=== PATIENT | male | born 1965 | race Caucasian/White ===

== ENCOUNTER 2017-05-07 07:09 | Inpatient (IN) | payer OTHER ==
[~2017-05-07] VITALS: Ht 180.3 cm; Wt 93.8 kg
[2017-05-07] VITALS (15 sets, daily range): BP systolic 101–131; BP diastolic 64–81; PULSE 59–77; RESP 18–20; TEMP 97.9–98.7; O2SAT 97–100
[2017-05-07] MEDS ORDERED: HEPARIN SODIUM - IV 10,000 UNITS/10 ML VIAL IV PUSH STA (07:11)
[2017-05-07] MEDS ORDERED: SODIUM CHLOR 0.9% 1000 ML INJ 1,000 ML IV ONE (07:11)
[2017-05-07] MEDS ORDERED: HEPARIN-NS/PF FLUSH BAG 2,000 ML IV FLUSH ONE (07:13)
[2017-05-07] MEDS ORDERED: SODIUM CHLORIDE 0.9% FLUSH 10 ML FLUSH IVF PRN (07:15)
--- NOTE | 2017-05-07 07:24 | PD ---
HPI Chief Complaint: STEMI Alert Time Seen by Provider: 07:11 Travel History International Travel<30 days: No Contact w/Intl Traveler<30days: No Traveled to known affect area: No History of Present Illness HPI Patient is a 52-year-old male brought in by EMS due to chest pain. He says he woke up around 530 this morning and had pain in his shoulders. It then quickly became pain to the center of his chest. He had some nausea and shortness of breath. Pain radiated down his left arm. He says he tried to drive with his to the hospital, but they got lost, so they called 911. He was given aspirin by EMS prior to arrival. He denies any medical history. He says he has never had pain like this before. Severity is moderate to severe. [facility] Past Medical History Medical History: Denies Significant Hx Past Surgical History Surgical History: No Previous Surgery Social History Tobacco Use: No Allergies-Medications (Allergen,Severity, Reaction): Coded Allergies: No Allergy Information Available (Unverified , 05/07/17) Review of Systems Except as stated in HPI: all other systems reviewed are Neg General / Constitutional: No: Fever, Chills HENT: No: Headaches, Lightheadedness Cardiovascular: Positive: Chest Pain or Discomfort Respiratory: Positive: Shortness of Breath Gastrointestinal: Positive: Nausea Musculoskeletal: No: Edema Skin: No Rash, No Change in Pigmentation Neurologic: No: Weakness, Dizziness Physical Exam Narrative GENERAL: Awake and alert, obviously uncomfortable, clutching his chest. SKIN: Diaphoretic. HEAD: Atraumatic. Normocephalic. EYES: Pupils equal and round. No scleral icterus. ENT: Mucous membranes pink and moist. NECK: Trachea midline. No JVD. CARDIOVASCULAR: Regular rate and rhythm. No murmur appreciated. RESPIRATORY: No accessory muscle use. Clear to auscultation. Breath sounds equal bilaterally. GASTROINTESTINAL: Abdomen soft, non-tender, nondistended. MUSCULOSKELETAL: No obvious deformities. No clubbing. No cyanosis. No edema. NEUROLOGICAL: Awake and alert. No obvious cranial nerve deficits. Motor grossly within normal limits. Normal speech. PSYCHIATRIC: Appropriate mood and affect; insight and judgment normal. Data Data Last Documented VS Vital Signs Date Time Temp Pulse Resp B/P (MAP) Pulse Ox O2 Delivery O2 Flow Rate FiO2 05/07/17 07:15 100 Nasal Cannula 2.00 05/07/17 07:11 98.7 66 18 101/64 (76) Orders Orders Troponin I (05/07/17 07:11) Ckmb (Isoenzyme) Profile (05/07/17 07:11) Complete Blood Count With Diff (05/07/17 07:11) I-Stat Profile (05/07/17 07:11) I-Stat Creatinine (05/07/17 07:11) Calcium (05/07/17 07:11) Magnesium (Mg) (05/07/17 07:11) Prothrombin Time / Inr (Pt) (05/07/17 07:11) Act Partial Throm Time (Ptt) (05/07/17 07:11) B-Type Natriuretic Peptide (05/07/17 07:11) Chest, Single Ap (05/07/17 07:11) Electrocardiogram (05/07/17 07:11) Oxygen Administration (05/07/17 07:11) Iv Access Insert/Monitor (05/07/17 07:11) Oximetry (05/07/17 07:11) Sodium Chlor 0.9% 1000 Ml Inj (Ns 1000 M (05/07/17 07:11) Sodium Chloride 0.9% Flush (Ns Flush) (05/07/17 07:15) Heparin Inj (Heparin Inj) (05/07/17 07:11) Cardiac Catheterization (05/07/17 07:13) Heparin-Ns/Pf Flush Bag (Heparin-Ns/Pf F (05/07/17 07:13) Admit Order (Ed Use Only) (05/07/17 ) CKMB (05/07/17 07:10) CKMB% (05/07/17 07:10) Labs Laboratory Tests Test 05/07/17 07:10 White Blood Count 6.8 TH/MM3 Red Blood Count 4.34 MIL/MM3 Hemoglobin 14.9 GM/DL Bedside Hemoglobin 14.3 G/DL Hematocrit 40.3 % Bedside Hematocrit 42.0 % Mean Corpuscular Volume 92.8 FL Mean Corpuscular Hemoglobin 34.4 PG Mean Corpuscular Hemoglobin Concent 37.1 % Red Cell Distribution Width 13.3 % Platelet Count 266 TH/MM3 Mean Platelet Volume 7.8 FL Neutrophils (%) (Auto) 57.6 % Lymphocytes (%) (Auto) 27.4 % Monocytes (%) (Auto) 10.8 % Eosinophils (%) (Auto) 3.6 % Basophils (%) (Auto) 0.6 % Neutrophils # (Auto) 3.9 TH/MM3 Lymphocytes # (Auto) 1.9 TH/MM3 Monocytes # (Auto) 0.7 TH/MM3 Eosinophils # (Auto) 0.2 TH/MM3 Basophils # (Auto) 0.0 TH/MM3 CBC Comment AUTO DIFF Differential Comment AUTO DIFF CONFIRMED Prothrombin Time 10.0 SEC Prothromb Time International Ratio 1.0 RATIO Activated Partial Thromboplast Time 21.0 SEC Bedside Sodium 141 MMOL/L Bedside Potassium 4.0 MMOL/L Bedside Chloride 104 MMOL/L Bedside Blood Urea Nitrogen 20 MG/DL Bedside Creatinine 1.0 MG/DL Bedside Glucose 143 MG/DL Calcium Level 8.2 MG/DL Magnesium Level 2.2 MG/DL Total Bilirubin 0.3 MG/DL Direct Bilirubin LESS THAN 0.1 MG/DL Indirect Bilirubin 0.2 MG/DL Aspartate Amino Transf (AST/SGOT) 15 U/L Alanine Aminotransferase (ALT/SGPT) 20 U/L Alkaline Phosphatase 90 U/L Total Creatine Kinase 192 U/L Creatine Kinase MB 2.1 NG/ML Troponin I 0.39 NG/ML B-Type Natriuretic Peptide 28 PG/ML Total Protein 7.1 GM/DL Albumin 3.7 GM/DL [facility] Medical Decision Making Medical Screen Exam Complete: Yes Emergency Medical Condition: Yes Interpretation(s) ECG shows ST elevation in leads II, 3, aVF as well as reciprocal changes in lead V2, V3. Differential Diagnosis ACS versus NSTEMI versus STEMI Narrative Course Patient is a 52-year-old male who is brought in by EMS due to chest pain. He is clutching his chest, diaphoretic. Second IV established, patient connected to the health care coach. ECG obtained, shows STEMI. STEMI alert issued. Patient was given Aspirin and Nitro by EMS. Patient was hypotensive on arrival. Started on IVF. Given heparin bolus. I spoke with Dr. Chow of cardiology who will take the patient to the labor mediator. Patient transported to the labor mediator. Diagnosis Primary Impression: STEMI (ST elevation myocardial infarction) Qualified Codes: I21.19 - ST elevation (STEMI) myocardial infarction involving other coronary artery of inferior wall Admitting Information Admitting Physician Requests: Admit Azalea Govea MD May 07, 2017 07:24
[2017-05-07 07:28] LABS: AUTOMATED NEUTROPHIL # 3.9 TH/MM3 (1.8-7.7); BASOPHIL % 0.6 % (0.0-2.0); EOSINOPHIL # 0.2 TH/MM3 (0-0.4); EOSINOPHIL % 3.6 % (0.0-4.0); HEMATOCRIT 40.3 % (39.0-51.0); HEMOGLOBIN 14.9 GM/DL (13.0-17.0); LYMPH % 27.4 % (9.0-44.0); LYMPHOCYTE # 1.9 TH/MM3 (1.0-4.8); MEAN CELL VOLUME 92.8 FL (80.0-100.0); MEAN CORPUSCULAR HEMOGLOBIN 34.4 PG (27.0-34.0); MEAN PLATELET VOLUME 7.8 FL (7.0-11.0); MONO % 10.8 % (0.0-8.0); MONOCYTE # 0.7 TH/MM3 (0-0.9); NEUT % 57.6 % (16.0-70.0); PLATELET COUNT 266 TH/MM3 (150-450); RED BLOOD COUNT 4.34 MIL/MM3 (4.50-5.90); RED CELL DISTRIBUTION WIDTH 13.3 % (11.6-17.2); WHITE BLOOD COUNT 6.8 TH/MM3 (4.0-11.0)
[2017-05-07 07:31] LABS: MEAN CORPUSCULAR HGB CONC 37.1 % (32.0-36.0)
--- NOTE | 2017-05-07 07:37 | RADRPT ---
EXAM DATE/TIME: 05/07/2017 07:11 [place] COMPARISON: No previous studies available for comparison. INDICATIONS : Stroke alert MEDICAL HISTORY : None. SURGICAL HISTORY : None. ENCOUNTER: Initial ACUITY: 1 day PAIN SCORE: 0/10 LOCATION: chest FINDINGS: Portable AP view of the chest demonstrates a normal-sized cardiac silhouette. No effusion, consolidat ion, or pneumothorax is visualized. The bones and soft tissues demonstrate no acute abnormality. EKG lines overlie the patient. CONCLUSION: No acute cardiopulmonary abnormality is identified. Reece Salter MD on May 07, 2017 at 7:34 Board Certified Radiologist. This report was verified electronically.
[2017-05-07 07:50] LABS: CALCIUM 8.2 MG/DL (8.5-10.1); MAGNESIUM 2.2 MG/DL (1.5-2.5)
[2017-05-07 07:52] LABS: TROPONIN I 0.39 NG/ML (0.02-0.05)
[2017-05-07] MEDS ORDERED: MIDAZOLAM HCL 2 MG/2 ML VIAL ONE (07:56)
[2017-05-07] MEDS ORDERED: SODIUM NITROPRUSSIDE 50 MG/2 ML VIAL ONE (08:03)
[2017-05-07] MEDS ORDERED: TIROFIBAN INFUSION INJ 0 ML IV ONE (08:11)
[2017-05-07] MEDS ORDERED: ATROPINE SULFATE 1 MG/10 ML SYRINGE ONE (08:11)
[2017-05-07] MEDS ORDERED: PRASUGREL 10 MG TAB ONE (08:11)
[2017-05-07] MEDS ORDERED: TIROFIBAN INFUSION INJ 250 ML IV ONE (08:13)
--- NOTE | 2017-05-07 08:37 | CATHPROC ---
[employer] HIS Report Study Information Study Number Admission Scheduled Start Study Start [id number] May 07 2017 7:09AM 05/07/2017 May 07 2017 7:14AM [facility] Cardiac Catheterization Admit Source Facility Department Emergency department [facility] - Personal Injury Paralegal Physician and Clinical Staff Initial French Manzanares Bumper Straightener Anne Lew RN Bumper Straightener Michael Sevilla RN Other cathlab, cathlab Recorder Aryan EDGE, Primo RecordCalixto Vazquez RCIS(BS) Scrub Mitzi Davenport,FREIGHT SALES BROKER TECH2 Procedures Performed Procedure Location (Site) Vessel Name Coronary Angiograms LCA Left Coronary LV Gram-hand inj. LV LV Ventricle Stent RCA Mid Right Coronary Wire insertion Fem Art (right) Femoral Art Equipment Time Clinical Sociologist Description Size Mfg Part Number Used/Scraped [id number] 07:56 KRAFT [employer] C[employer] WIRE, ASAHI PROWATER 180CM 180CM Used *[id number] TRANSDUCER, TRUWAVE [id number] 07:20 GRADY GRESHAM * Used W/STOCKCOCK *[id number] [id number] *[id number] -[id number] *[id number] *[id number] [id number] *[id number] 07:20 MEDLINE INDUSTRIES PACK, CCL CUSTOM * Used *[id number] 07:20 [employer] PACER PEN, SKIN DUAL W/ RULER * Used *[id number] 08:03 MEDTRONIC STENT, 3.0 22 INTEGRITY 3.0 22 Used *[id number] 07:57 [employer] MEDICAL 30 AIDEE INDEFLATOR Used *[id number] 07:20 [employer] MEDICAL SHEATH, FR6.5 PRELUDE 11CM FR 6.5 038ACT Used *[id number] 07:20 [employer] MEDICAL WIRE, 3MMJ .035 180CM 180CM Used *[id number] 07:20 NAMIC MANIFOLD, 4 PORT * Used *[id number] 07:20 NYCOMED OMNIPAQUE, 350 MG, 150ML 150ML [id number] Used [id number] 07:20 HAIDER MEDICAL BLANKET,WARM AIR CCL * Used *[id number] 07:20 TERUMO MEDICAL SHEATH, FR4 TERUMO (10CM) FR 4 Used *[id number] Equipment Model, Serial, Lot Number and Expiration Data Description Model Number Serial Number Lot Number Expiration Date STENT, 3.0 22 INTEGRITY [id number] 06-10-2018 History: Allergies Allergy Reaction No Allergy Information Available History: Risk Factors Family History of Hypertension Dyslipidemia Previous OR Previous Heart Failure Premature CAD No No Yes No No Prior Valve Prior PCI Prior CABG Surgery No No No Cerebrovascular Peripheral Artery Chronic Lung On Dialysis Diabetes Disease Disease Disease No No No Yes No History: Symptoms/Diagnosis Selection Items Chest pain History: Stress Tests Stress or Imaging Studies Performed No History: Other Current Smoker No Labs Hgb (g/dl) Hct (%) RBC (MIL/MM3) Platelets (thousands) 11.60-17.00 35.00-51.00 4.00-5.90 150.00-450.00 14.9 30.3 6.8 266 Glucose (mg/dl) BUN (mg/dl) Creatinine (mg/dl) BUN:Creatinine (1:x) 74.00-106.00 7.00-18.00 0.50-1.30 10.00-20.00 143 20 1.0 20 Na (meq/l) K (meq/l) 136.00-145.00 3.50-5.10 141 4 CPK-MB (ng/ML) 0.50-3.60 Not Drawn Medication Medication Total Dose (Bolus/Oral) Medication Total Dosage/Unit 1% XYLOCAINE 20 mL AGGRASTAT BOLUS 47.7 mL ATROPINE 0.5 mg EFFIENT 60 mg FENTANYL 37.5 mcg HEPARIN 5700 units VERSED 1 mg Medications (Bolus/Oral) Medication Time Given Dosage/Unit Administered By Reason 1% XYLOCAINE 05/07/2017 7:56:37 AM 20 mL French Chow 20 mL 1% XYLOCAINE given in lab by French Chow in Right Groin via Subcutaneous. VERSED 05/07/2017 7:57:00 AM 1 mg Hes, Anne 1 mg VERSED given in lab by Anne Lew, KELY in Left Antecubital via Peripheral IV. Ordered by French Shipman. FENTANYL 05/07/2017 7:58:54 AM 12.5 mcg Vipin, Anne 12.5 mcg FENTANYL given in lab by Anne Lew, RN via Peripheral IV. Ordered by French Chow. HEPARIN 05/07/2017 8:03:10 AM 5700 units Anne Lew 5700 units HEPARIN given in lab by Anne Lew RN via Peripheral IV. Ordered by French Chow. ATROPINE 05/07/2017 8:05:07 AM 0.5 mg Anne Lew 0.5 mg ATROPINE given in lab by Anne Lew RN via Peripheral IV. Ordered by French Chow. FENTANYL 05/07/2017 8:10:41 AM 12.5 mcg Anne Lew 12.5 mcg FENTANYL given in lab by Anne Lew RN via Peripheral IV. Ordered by French Chow. EFFIENT 05/07/2017 8:18:29 AM 60 mg Anne Lew 60 mg EFFIENT given in lab by Anne Lew RN via Oral. Ordered by French Chow. AGGRASTAT BOLUS 05/07/2017 8:18:40 AM 47.7 mL Michael Sevilla 47.7 mL AGGRASTAT BOLUS given in lab by Michael Sevilla RN via Peripheral IV. Ordered by Juliann Chow. FENTANYL 05/07/2017 8:27:18 AM 12.5 mcg Anne Lew 12.5 mcg FENTANYL given in lab by Anne Lew RN via Peripheral IV. Ordered by French Chow. Medication (Drip) Medication Time Given Dosage/Unit Concentration/Unit Diluent (ml) Solution AGGRASTAT DRIP 05/07/2017 8:20:50 AM 0.15 mcg/kg/min 12.5 mg 250 NaCl .9 0.15 mcg/kg/min AGGRASTAT DRIP given in lab by Michael Sevilla RN via Peripheral IV. Pump/Drip Flow = 1 7.19 ml/hr using NaCl .9 with a concentration of 12.5 mg in 250 ml. Ordered by French Chow. IV Solutions 05/07/2017 7:23:20 AM 0 mL (IV) 500 NaCl .9 Patient arrived on IV Solutions in Left Antecubital via Peripheral IV. Pump/Drip Flow = 20 ml/hr usin g NaCl .9. NIPRIDE 05/07/2017 8:06:43 AM 50 mcg 50 mcg NIPRIDE given in lab by French Chow via Intra-coronary. Ordered by French Chwo. NIPRIDE 05/07/2017 8:07:53 AM 50 mcg 50 mcg NIPRIDE given in lab by French Chow via Intra-coronary. Ordered by French Chow. NIPRIDE 05/07/2017 8:08:13 AM 100 mcg 100 mcg NIPRIDE given in lab by French Chow via Intra-coronary. Ordered by French Chow. Initial Case Assessment Cardiovascular HR Rhythm NIBP Chest Pain 64 stemi 132/88 2 Edema Present Skin color Skin None Normal Warm Dry Circulatory - Right Pulses Dorsalis Pedis Femoral 2 2 Scale (0,1,2,3,4,d) Circulatory - Left Pulses Dorsalis Pedis Femoral 2 2 Scale (0,1,2,3,4,d) Neurological State Oriented to time-place- Alert Moves all extremities person Respiration - General Respiration Rate SpO2 (%) (B/min) 15 100 Chronological Log Time Study Chronological Log 7:13:47 ED notified medical laboratory technicians is ready 7:15:26 Crossmn [address]. Pt on the way. 7:23:00 Patient arrived via Bed. 7:23:00 Patient Name, D.O.B, / Armband Verified By R.N. 7:23:01 Consent signed by the physician and the patient and verified by the Personal Injury Paralegal staff. 7:23:02 Pre-op and post- op instructions given; patient acknowledges understanding of instructions. 7:23:02 Verbal Stimulation=2 Physical Stimulation=2 Airway=2 Respiration=2 TOTAL=8. (0=absent, 1=li mited, 2=present) 7:23:08 Presedation assessment performed by Personal Injury Paralegal RN. 7:23:08 Immediate Presedation assesment performed by physician. 7:23:09 Patient has been NPO for More than 6Hrs. 7:23:15 Skin Breakdown- none per patient 7:23:16 Patient Warmer Placed on the Table. 7:23:17 [place] Prominences Protected 7:23:18 A # 18 IV was noted in the Antecubital (left). Grade = 0 7:23:19 A # 18 IV was noted in the Antecubital (right). Grade = 0 7:23:20 Patient arrived on IV Solutions in Left Antecubital via Peripheral IV. Pump/Drip Flow = 20 ml/hr using NaCl .9. 7:23:22 History and physical on the chart or being dictated. Vitals capture started with the following parameters, Patient=Adult, Interval=5 min, Initial Pre faxzv=785 mmHg, 7:25:52 Deflation Rate=5 mmHg, Cuff placed on Unknown Assessment: Initial Case, HR=64 BPM, Rhythm=stemi, WBYX=290/88 mmhg, Chest Pain=2, Edema=None, Color=Normal, Skin = Warm, Dry Right Pulses: Mikie Ped=2, Femoral=2 7:28:57 Left Pulses: Mikie Ped=2, Femoral=2 Neurological: State=Alert, Ox3, BAILON Respiration: Resp=15 B/min, GpB7=542 % Vitals capture started with the following parameters, Patient=Adult, Interval=5 min, Initial Pre vfwjk=921 mmHg, 7:28:59 Deflation Rate=5 mmHg, Cuff placed on Unknown 7:29:40 HR=94 bpm, BJQY=978/88 mmhg, WxT6=013.0 %, Resp=16 B/min, Pain=0, Alex=10, Martinez=2 7:30:13 Bilateral groins prepped with 2% chlorhexidine, and draped after a 3 minute waiting time. 7:30:20 Reference ECG taken 7:32:02 MD paged 7:33:11 Pressure channel 1 zeroed. 7:33:31 MD responded 7:34:33 HR=65 bpm, VAVC=639/81 mmhg, BhR3=407.0 %, Resp=15 B/min, Pain=0, Alex=10, Martinez=2 7:39:34 HR=70 bpm, POXR=773/80 mmhg, HqQ4=672.0 %, Resp=15 B/min, Pain=0, Alex=10, Martinez=2 7:45:10 HR=65 bpm, SKRT=572/89 mmhg, SpO2=99.0 %, Resp=16 B/min, Pain=0, Alex=10, Martinez=2 7:49:40 HR=78 bpm, UMGO=186/93 mmhg, SpO2=99.0 %, Resp=16 B/min, Pain=0, Alex=10, Martinez=2 7:53:19 MD arrived. 7:53:23 Contrast Scanned 7:53:24 Immediate Presedation assesment performed by physician. 7:54:39 HR=68 bpm, REFL=590/93 mmhg, FuH4=399.0 %, Resp=20 B/min, Pain=0, Alex=10, Martinez=2 Time Out. Correct patient, correct procedure, correct physician, power injector not loaded with contrast with surgical 7:56:23 team present. Time Out Concurred by MD and individual staff in procedure. 7:56:31 Case Start 7:56:32 Verbal Stimulation=2 Physical Stimulation=2 Airway=2 Respiration=2 TOTAL=8. (0=absent, 1=whittington ited, 2=present) 7:56:37 20 mL 1% XYLOCAINE given in lab by French Chow in Right Groin via Subcutaneous. 7:57:00 1 mg VERSED given in lab by Anne Lew, RN in Left Antecubital via Peripheral IV. Ordere d by French Cohw. 7:57:59 Access site was Right Femoral Artery. 7:58:37 A SHEATH, FR6.5 PRELUDE 11CM FR 6.5 was advanced into the Fem Art (right) using the Percutan eous technique. A JR 4.0 GUIDE CATHETER FR 6 was advanced over a wire. OMNIPAQUE, 350 MG, 150ML 150ML was used f or 7:58:48 injections. 7:58:54 12.5 mcg FENTANYL given in lab by Anne Lew, KELY via Peripheral IV. Ordered by French Chow. 7:59:38 HR=72 bpm, OXVT=200/85 mmhg, SzG3=654.0 %, Resp=16 B/min, Pain=0, Alex=10, Martinez=2 Recorded Pressure: Ao, HR=78, Condition=Condition 1 8:00:20 (Aorta) Ao 141/89/112 8:00:26 A WIRE, [employer] PROWATER 180CM 180CM was inserted via Fem Art (right). 8:00:44 Interventional wire has crossed the lesion 8:02:06 ACT (Normal Range 90-180) = 182 8:03:10 5700 units HEPARIN given in lab by Anne Lew, RN via Peripheral IV. Ordered by French Chow. An STENT, 3.0 22 INTEGRITY 3.0 22 Bare Metal Stent was inserted through a JR 4.0 GUIDE CATHETER FR 6 over a 8:03:51 WIRE, Policard PROWATER 180CM 180CM. A STENT, 3.0 22 INTEGRITY 3.0 22 was deployed using a 30 AIDEE INDEFLATOR at 14 atmospheres for 20 seconds in 8:04:19 the RCA Mid. 8:04:39 HR=80 bpm, SMIJ=098/87 mmhg, SpO2=98.0 %, Resp=21 B/min, Pain=0, Martinez=2 8:05:03 NIBP STAT measurement started. 8:05:07 0.5 mg ATROPINE given in lab by Anne Lew, RN via Peripheral IV. Ordered by Elda Chow rt 8:05:30 Delivery device removed 8:05:45 HR=52 bpm, NIBP=98/54 mmhg, SpO2=99.0 %, Resp=15 B/min, Martinez=2 8:06:43 50 mcg NIPRIDE given in lab by French Chow via Intra-coronary. Ordered by Farhan Chow 8:07:53 50 mcg NIPRIDE given in lab by French Chow via Intra-coronary. Ordered by Farhan Chow 8:08:13 100 mcg NIPRIDE given in lab by French Chow via Intra-coronary. Ordered by Harsha Chow. 8:09:32 HR=92 bpm, UBYK=041/71 mmhg, SpO2=98.0 %, Resp=22 B/min, Martinez=2 8:10:26 Activated Clotting Time Drawn After removing the current catheter a JL 4.0 INFINITI CATHETER FR 4 was advanced over a WIRE, 3M MJ .035 180CM 8:10:40 180CM. 8:10:41 12.5 mcg FENTANYL given in lab by Anne Lew, KELY via Peripheral IV. Ordered by French Chow. Recorded Pressure: LV, HR=88, Condition=Condition 1 8:10:56 (Left Ventricle) LV 113/7/20 8:12:01 The LV was manually injected with 10 cc's and visualized. OMNIPAQUE, 350 MG, 150ML 150ML use d. 8:12:25 The LCA was injected and visualized at various angles. OMNIPAQUE, 350 MG, 150ML 150ML used. 8:14:29 Catheter was removed 8:14:40 Case End 8:14:48 In the Fem Art (right) the SHEATH, FR6.5 PRELUDE 11CM FR 6.[address] by Mitzi Davenport, FREIGHT SALES BROKER TECH2. 8:15:12 TL=248 bpm, OAIG=163/84 mmhg, CyB2=838.0 %, Resp=18 B/min, Pain=0, Martinez=2 8:17:53 Sterile dressing applied to site 8:18:24 ACT (Normal Range 90-180) = 281 8:18:29 60 mg EFFIENT given in lab by Anne Lew, RN via Oral. Ordered by French Chow. 8:18:40 47.7 mL AGGRASTAT BOLUS given in lab by Michael Sevilla RN via Peripheral IV. Ordered by French Baer. 8:19:38 HR=88 bpm, RBLI=055/100 mmhg, GiT2=748.0 %, Resp=18 B/min, Martinez=2 0.15 mcg/kg/min AGGRASTAT DRIP given in lab by Michael Sevilla RN via Peripheral IV. Pump/Drip Evgeny w = 17.19 ml/hr 8:20:50 using NaCl .9 with a concentration of 12.5 mg in 250 ml. Ordered by French Chow. 8:24:43 HR=82 bpm, OEDD=600/89 mmhg, FlR3=734.0 %, Resp=21 B/min, Pain=0, Martinez=2 8:27:03 No case complications noted. 8:27:15 Bedside Report will be given. 8:27:18 12.5 mcg FENTANYL given in lab by Anne Lew, KELY via Peripheral IV. Ordered by French Chow. 8:27:30 CIC called. Spoke to Hellen 8:28:16 Patient moved to stretcher 8:29:26 Vitals capture stopped. 8:31:29 Patient moved to stretcher End Study - Contrast Media Used In Study Contrast Total Opened (mL) Total Used (mL) Total Wasted (mL) Omnipaque 110 110 0 End Study - Maximum Contrast Load Max Contrast Load (mL) 477.3 End Study - Radiation Exposure Fluoro Time (minutes) 3.2 End Study - Patient Disposition Complications Transferred To Interventional Outcome No Telemetry Bed successful
[2017-05-07] MEDS ORDERED: TIROFIBAN INFUSION INJ 250 ML IV SCH (08:55)
--- NOTE | 2017-05-07 08:57 | MA ---
cc: French Chow MD DATE: 05/07/2017 PROCEDURE PERFORMED: Left heart catheterization, left ventriculography, coronary angiography, direct primary PCI in the proximal mid right coronary artery. INDICATIONS: STEMI, coronary artery disease, [place] Cardi[employer] class IV angina. PROCEDURAL STATEMENT: The patient was brought to the cardiac catheterization laboratory, prepped and draped in the usual sterile fashion. A 10 mL of 1% lidocaine was used to locally anesthetize the right common femoral artery. A 6-Afghan sheath placed in the right common femoral artery. A 6-Afghan JR4 guide and a 0.014 Prowater were used to image the right coronary artery. Initially this showed an occlusion in the proximal segment. A 0.014 Prowater guidewire was placed into the distal right coronary artery. This resulted in reperfusion with LIA 2-3 flow and a large clot burden in the proximal mid RCA. This was direct stented with a 3.0 x 22 Integrity stent with one inflation to 14 atmospheres for 20 seconds. Of note, even at 13 atmospheres, the stent was under deployed and needed to go a full 14 atmospheres for full deployment. The stenosis went from 100% to 0 percent with LIA 2-3 flow. The patient became bradycardiac, developed some wide complex rhythm with no drop in blood pressure. This responded to a 0.6 of atropine. I also gave him 200 mcg of intracoronary nitroprusside in 50 to 100 mcg increments in the right coronary artery which resulted in LIA [address] flow [address] of [address] changes and narrow complex normal sinus rhythm on the monitor. There was irvixxui-bb-kylsdj disease in the distal segment up to 60-70% angiographically. The right posterolateral artery has a complex 70% stenosis at a bifurcation, there is a large PDA, which has a relatively proximal takeoff off the distal right coronary artery. It has a proximal mid 50 percent stenosis and has a mid 80 percent stenosis. The LV pressures were then obtained 120/8-10, EF 60%. The left main coronary artery has a distal 45-50% stenosis. The left circumflex vessel has a 70% stenosis and then gives off a medium sized obtuse marginal vessel, which itself has an ostial 70% stenosis. Then there are 2, relatively small to medium size obtuse marginal vessels coming off the mid to distal left circ. The more proximal vessel has an ostial proximal 40 percent stenosis. The more distal of the 2 has a 50% proximal stenosis. The LAD has an ostial proximal 20-30% stenosis. There is a focal 80% stenosis in the midsegment. The LAD is transapical. The first diagonal artery is small 0.5-1 mm reference vessel diameter. No significant disease angiographically. The second diagonal artery is again another small artery. No significant disease 0.5-1 mm in diameter. The third diagonal artery comes off the LAD just after the second diagonal artery and has an ostial 60-70 percent stenosis. CONCLUSIONS: 1. STEMI, culprit occluded proximal right coronary artery as detailed above. 2. Moderate left main and severe relatively diffuse coronary artery disease in a right dominant system as detailed above. 3. Normal left ventricular systolic function with ejection fraction 60%. 4. Successful direct PCI with bare metal stent on the proximal mid RCA from 100% with LIA 0 flow to 0 percent with LIA 3 flow. 5. Recommend Aggrastat drip per protocol. 6. Finally, the patient was given an additional 5000 units of heparin with a final ACT of 281 in the laboratory miller. We will dose the patient was 60 mg of p.o. Effient and 10 mg daily for 12-15 months, aspirin 162 mg daily. I will treat with CHRISTINE inhibitor and beta abraham and statin as clinically and hemodynamically tolerated. We will probably hold beta abraham for the first 24 hours, given the bradycardia post-reperfusion. French Chow MD AWAmaris/ANTON , 08:26 AM , 08:55 AM
[2017-05-07] MEDS ORDERED: PRASUGREL 10 MG TAB PO ONE (09:00)
[2017-05-07] MEDS ORDERED: SODIUM CHLORIDE 0.9% FLUSH 10 ML FLUSH IV FLUSH PRN (09:00)
[2017-05-07] MEDS ORDERED: MISC INFORMATION XX ONE (09:00)
[2017-05-07] MEDS ORDERED: IOHEXOL 350 MG/ML 100 ML BTL (for Cath Lab) OTHER ONE (09:48)
[2017-05-07] MEDS ORDERED: IOHEXOL 350 MG/ML 50 ML BTL (for Cath Lab) OTHER ONE (09:48)
[2017-05-07 11:53] LABS: ALBUMIN 3.7 GM/DL (3.4-5.0); ALT (GPT) 20 U/L (12-78); AST (GOT) 15 U/L (15-37); DIRECT BILIRUBIN ADULT LESS THAN 0.1 MG/DL (0.0-0.2)
[2017-05-07 11:55] LABS: ALKALINE PHOSPHATASE 90 U/L (45-117); INDIRECT BILIRUBIN 0.2 MG/DL (0.0-0.8); TOTAL BILIRUBIN ADULT 0.3 MG/DL (0.2-1.0); TOTAL PROTEIN 7.1 GM/DL (6.4-8.2)
[2017-05-07] MEDS: GABAPENTIN 400 MG CAP PO SCH ×2 (12:56→18:02)
[2017-05-07] MEDS ORDERED: traMADol HCL 50 MG TAB PO PRN ×2 (13:00→14:45)
[2017-05-07] MEDS ORDERED: traMADol HCL 50 MG TAB PO SCH (13:00)
--- NOTE | 2017-05-07 13:42 | EKG ---
Date Performed: 05/07/2017 Time Performed: 07:02:22 PTAGE: 52 years EKG: SINUS BRADYCARDIA ST ELEVATION, CONSIDER INFERIOR INJURY ACUTE FL NO PREVIOUS TRACING DOCTOR: Orestes Babcock Interpretating Date/Time 05/07/2017 13:27:31
--- NOTE | 2017-05-07 16:34 | MB ---
cc: Randell Kamara MD DATE: 05/07/2017 DATE OF : 1965 HISTORY OF PRESENT ILLNESS: A 52-year-old male, visiting from out of state, [facility], visiting with his family, presented to the emergency room with chest pain, admitted on the early this morning. He said he woke up about 5:30 this morning had pain in his shoulders. The pain quickly came to the center of his chest. He had some nausea, shortness of breath. The pain radiated down his arm. They ended up calling 9-1-1. He was given aspirin by EMS. STEMI Alert was called. His initial troponin is 0.39. EKG showed some ST elevation in the inferior leads with some reciprocal changes in the septal leads. The patient immediately went to the laborer hide [facility], was found to have ejection fraction of 60%, left main disease of 40-50%. The left circumflex had a 70% stenosis. One of the OMs has a 40% stenosis. The LAD had an ostial proximal 20-30 and 80% in the midsegment. The diagonal had a 60-70% stenosis. The STEMI culprit was the RCA which had a 60-70% angiography complex, 70% stenosis at the bifurcation, there was a large PDA that had a mid 80% stenosis. There was also a large clot burden in the proximal mid-RCA. The patient was then immediately stented with an Integrity stent. He also had become bradycardic, developed some wide complex rhythm, responded to some atropine and nitroprusside. The LIA flow went from 0 to LIA 3 flow. At that time, the decision was to start Effient. He was loaded with 60 mg x1 and is on a daily dose. We were consulted to evaluate for coronary artery bypass grafting. However, Dr. Kamara spoke with Dr. Chow. It is felt that he should recover from the initial AL and continue with the antiplatelet therapy for four to six weeks. The patient is to recover and possibly go back to [facility] to be evaluated by cardiology and cardiovascular surgery for further evaluation for surgery. PAST MEDICAL HISTORY: No past medical history. PAST SURGICAL HISTORY: No surgical history. MEDICATIONS: No home medications. SOCIAL HISTORY: The patient is and lives with his family. REVIEW OF SYSTEMS: GENERAL: No night sweats, fever, heat or cold intolerance. SKIN: No psoriasis, itching, hives. HEENT: No blurred vision, hearing loss. RESPIRATORY: Positive for recent shortness of breath. CARDIOVASCULAR: As above in the HPI. GASTROINTESTINAL: No diarrhea or vomiting. GENITOURINARY: No burning, frequency, urgency. CENTRAL NERVOUS SYSTEM: No history of TIA, CVA or seizure disorder. ENDOCRINOLOGY: No diabetes or hypothyroidism. PHYSICAL EXAMINATION: VITAL SIGNS: Blood pressure 110/60, heart rate is 68, O2 saturation 100 on 2 liters. GENERAL: Awake, alert, in no acute distress. HEENT: Head is normocephalic, atraumatic. Pupils equal and reactive. Oral mucosa pink, moist. NECK: Supple. No JVD. CARDIOVASCULAR: Heart sounds S1, S2. Regular rate and rhythm. No rubs, murmurs, or gallops. LUNGS: Clear to auscultation. No wheezes, rales or rhonchi. ABDOMEN: Soft, nontender. No masses or organomegaly. EXTREMITIES: No cyanosis, clubbing or edema. He has got a pressure dressing to the right groin. Good distal pulses. LABORATORY DATA: Hemoglobin 14, hematocrit of 40, white cell count is 6.8, platelet count of 266. Sodium 141, potassium 4.0, BUN of 20, creatinine 1.0. INR 1.0. Chest x-ray, no acute changes. IMPRESSION: This is a 52-year-old man with an acute STEMI who underwent emergent cardiac catheterization with an Integrity stent to the RCA, loaded with Effient and now on daily dose of Effient. RECOMMENDATIONS: Once the patient stabilizes, to be discharged. He can return back to his home state of [facility] to be evaluated by his infrastructure project manager and then cardiovascular surgery for surgery in approximately 4-6 weeks. We have, however, given the option that if he stays in the area that we would evaluate him again in 4 weeks to evaluate for surgery at that time, that he is to recover from his initial insult. Dictated by LOC Larkin MD SANGEETHA Rivera/HEIDI , 03:23 PM , 04:31 PM
--- NOTE | 2017-05-07 16:42 | MB ---
cc: French Chow MD DATE: 05/07/2017 HISTORY OF PRESENT ILLNESS: Faizan is a very pleasant 56-year-old gentleman who states he had been having chest pain approximately 2 weeks prior to admission, was treated for the flu and told that he had pleuritic chest pain, developed severe chest pain this morning at 5:30 radiating to the left upper extremity, found to have inferior injury pattern with reciprocal changes in the anterior precordial leads. STEMI alert was called. The patient otherwise denies any fevers, chills, cough, GI or bleeding, PND, orthopnea or dizziness. PAST MEDICAL HISTORY: As per history of present illness. ALLERGIES: NONE. MEDICATIONS: Given in the ER are aspirin and IV heparin. PHYSICAL EXAMINATION: VITAL SIGNS: Temperature 98.7, pulse 66, respiration 18, blood pressure 101/64, sats 100 percent on 2 liters nasal cannula. GENERAL: He is alert and oriented x 3, in no acute distress. NECK: Supple. No JVD. No bruit. CARDIOVASCULAR: S1, S2. No murmurs, rubs or gallops. LUNGS: Clear to auscultation bilaterally. ABDOMEN: Soft, nontender, nondistended with positive bowel sounds. EXTREMITIES: No lower extremity edema. IMAGING STUDIES: Chest x-ray shows no acute cardiopulmonary abnormalities identified. EKG: Sinus bradycardia at 47 beats per minute. There is ST elevation 1-2 mm in the inferior leads with reciprocal changes in V1, V2. LABORATORY DATA: White count 6.8, hemoglobin 14.3, hematocrit 42.0, platelet count 266. Sodium 141, potassium 4.0, chloride 104, bicarbonate 20, BUN 20, creatinine 1.0, glucose 143, magnesium 2.2. Troponin 0.39. CK 192. INR is 1.1. DIAGNOSES: 1. ST-elevation myocardial infarction. 2. [place] [employer] class IV angina. 3. Hyperglycemia. PLAN: At this point in time, a STEMI alert has been called. The patient was treated with aspirin and heparin in the ER. Further management decisions based on the patient's coronary anatomy and cardiac catheterization. French Chow MD AWC/KD , 03:27 PM , 04:41 PM
[2017-05-07] MEDS: NICOTINE 21 MG/24 HR PATCH T-DERMAL SCH (17:03)
[2017-05-07] MEDS: RAMIPRIL 2.5 MG CAP PO SCH (18:01)
[2017-05-07] MEDS: SODIUM CHLORIDE 0.9% FLUSH 10 ML FLUSH IV FLUSH SCH ×2 (18:02→21:53)
[2017-05-07] MEDS: ASPIRIN 81 MG CHEW TAB PO SCH (18:05)
[2017-05-07] MEDS: BACLOFEN 20 MG TAB PO SCH (21:53)
[2017-05-08] VITALS (26 sets, daily range): BP systolic 97–133; BP diastolic 68–94; PULSE 60–98; RESP 16–20; TEMP 97.6–98.7; O2SAT 96–98
[2017-05-08 06:46] LABS: AUTOMATED NEUTROPHIL # 5.3 TH/MM3 (1.8-7.7); BASOPHIL % 0.5 % (0.0-2.0); EOSINOPHIL # 0.2 TH/MM3 (0-0.4); HEMOGLOBIN 14.3 GM/DL (13.0-17.0); LYMPH % 18.9 % (9.0-44.0); LYMPHOCYTE # 1.5 TH/MM3 (1.0-4.8); MEAN CELL VOLUME 93.1 FL (80.0-100.0); MEAN CORPUSCULAR HEMOGLOBIN 32.5 PG (27.0-34.0); MEAN CORPUSCULAR HGB CONC 34.9 % (32.0-36.0); MEAN PLATELET VOLUME 8.1 FL (7.0-11.0); MONO % 9.6 % (0.0-8.0); MONOCYTE # 0.7 TH/MM3 (0-0.9); PLATELET COUNT 249 TH/MM3 (150-450); RED CELL DISTRIBUTION WIDTH 13.5 % (11.6-17.2); WHITE BLOOD COUNT 7.8 TH/MM3 (4.0-11.0)
[2017-05-08 07:03] LABS: BICARBONATE 25.8 MEQ/L (21.0-32.0); CALCIUM 8.2 MG/DL (8.5-10.1); CREATININE 0.93 MG/DL (0.60-1.30)
[2017-05-08 07:15] LABS: CHOLESTEROL/ HDL RATIO 5.56 RATIO; HDL CHOLESTEROL 40.1 MG/DL (40.0-60.0)
[2017-05-08] MEDS ORDERED: ATORVASTATIN 40 MG TAB PO ONE (08:00)
[2017-05-08] MEDS ORDERED: CARVEDILOL 3.125 MG TAB PO ONE (08:00)
[2017-05-08] MEDS: NICOTINE 21 MG/24 HR PATCH T-DERMAL SCH (09:00)
[2017-05-08] MEDS: ASPIRIN 81 MG CHEW TAB PO SCH (09:17)
[2017-05-08] MEDS: RAMIPRIL 2.5 MG CAP PO SCH (09:17)
[2017-05-08] MEDS: GABAPENTIN 400 MG CAP PO SCH ×3 (09:18→17:45)
[2017-05-08] MEDS: SODIUM CHLORIDE 0.9% FLUSH 10 ML FLUSH IV FLUSH SCH ×2 (09:18→21:07)
[2017-05-08] MEDS: PRASUGREL 10 MG TAB PO SCH (09:18)
[2017-05-08] MEDS ORDERED: ATOR40TA16 PO (12:58)
[2017-05-08] MEDS ORDERED: CARV3.125 PO (12:58)
[2017-05-08] MEDS ORDERED: RAMI2.5C PO (12:58)
[2017-05-08] MEDS ORDERED: PRAS10TA PO (12:58)
[2017-05-08] MEDS ORDERED: NEUR400C PO (12:58)
[2017-05-08] MEDS ORDERED: ASPI81 PO (12:58)
--- NOTE | 2017-05-08 13:03 | HHI.PR ---
Subjective Remarks Follow-up ST elevation MO 05/07/17-patient seen and examined, he status post PCI with stent placement; she denies any chest pain or shortness of breath. No acute event overnight. He was seen by CTS and recommended follow up in 4 weeks Objective Vitals Vital Signs Date Time Temp Pulse Resp B/P (MAP) Pulse Ox O2 Delivery O2 Flow Rate FiO2 05/08/17 12:00 98.0 76 18 124/79 (94) 97 05/08/17 08:00 97.6 70 18 124/75 (91) 98 05/08/17 07:00 70 05/08/17 06:11 66 05/08/17 06:00 65 05/08/17 05:00 67 05/08/17 04:10 98.6 60 20 97/70 (79) 97 05/08/17 04:10 63 05/08/17 04:00 66 05/08/17 03:00 64 05/08/17 02:00 65 05/08/17 01:00 65 05/08/17 00:00 98.7 64 20 101/68 (79) 97 05/08/17 00:00 68 05/08/17 00:00 63 05/07/17 23:00 66 05/07/17 22:00 63 05/07/17 21:00 76 05/07/17 20:00 77 05/07/17 20:00 63 05/07/17 20:00 98.6 63 20 106/67 (80) 97 05/07/17 19:00 68 05/07/17 17:00 68 05/07/17 16:00 59 05/07/17 15:20 98.7 63 18 131/81 (98) 97 05/07/17 15:20 62 05/07/17 15:00 63 05/07/17 14:00 69 05/07/17 13:00 70 I/O 05/07/17 05/07/17 05/07/17 05/08/17 05/08/17 05/08/17 07:00 15:00 23:00 07:00 15:00 23:00 Intake Total 1679 ml 240 ml Output Total 1325 ml 1000 ml Balance 354 ml -760 ml Intake Oral 480 ml 240 ml IV Total 1199 ml Output Urine Total 1325 ml 1000 ml # Bowel Movements 0 Result Diagram: 05/08/17 0440 05/08/17 0440 Imaging Last Impressions Chest X-Ray 05/07/17 0711 Signed Impressions: Service Date/Time: April 07:11 - CONCLUSION: No acute cardiopulmonary abnormality is identified. Reece Salter MD Objective Remarks GENERAL: NAD SKIN: Warm and dry. HEAD: Normocephalic. EYES: No scleral icterus. No injection or drainage. NECK: Supple, trachea midline. No JVD or lymphadenopathy. CARDIOVASCULAR: Regular rate and rhythm without murmurs, gallops, or rubs. RESPIRATORY: Breath sounds equal bilaterally. No accessory muscle use. GASTROINTESTINAL: Abdomen soft, non-tender, nondistended. MUSCULOSKELETAL: No cyanosis, or edema. BACK: Nontender without obvious deformity. No CVA tenderness. A/P Problem List: (1) STEMI (ST elevation myocardial infarction) ICD Code: I21.3 - ST elevation (STEMI) myocardial infarction of unspecified site Status: Acute Assessment and Plan 52 years old man with STEMI s/p PCI with stent placement Currently on Effient, ASA, BB, Lipitor, Enalapril Management per cardiology STEMI culprit was the RCA which had a 60-70% angiography complex, 70% stenosis at the bifurcation, there was a large PDA that had a mid 80% stenosis. CTS was consulted, and states He can return back to his home state of [facility] to be evaluated by his lithograph press operator and then cardiovascular surgery for surgery in approximately 4-6 weeks Problem Qualifiers (1) STEMI (ST elevation myocardial infarction): Qualified Codes: I21.19 - ST elevation (STEMI) myocardial infarction involving other coronary artery of inferior wall Abrahan Gagnon MD May 08, 2017 13:03
[2017-05-08] MEDS ORDERED: REMOVE OLD PATCH T-DERMAL SCH (17:03)
--- NOTE | 2017-05-08 17:33 | PD.CARD.PN ---
Subjective Subjective Remarks denies chest pain Objective Medications Current Medications Medications (Trade) Dose Ordered Sig/Ky Route Start Time Stop Time Status Last Admin (NS Flush) 2 ml UNSCH PRN IVF 05/07/17 07:15 (NS Flush) 2 ml UNSCH PRN IV FLUSH 05/07/17 09:00 (NS Flush) 2 ml BID IV FLUSH 05/07/17 09:00 05/08/17 09:18 (Aspirin Chew) 162 mg DAILY PO 05/07/17 09:00 05/08/17 09:17 (Effient) 10 mg DAILY PO 05/08/17 09:00 05/08/17 09:18 (Altace) 2.5 mg DAILY PO 05/07/17 09:00 05/08/17 09:17 (Neurontin) 800 mg TID PO 05/07/17 13:00 05/08/17 12:34 (Lioresal) 20 mg HS PO 05/07/17 21:00 05/07/17 21:53 (Ultram) 50 mg Q6HR PRN PO 05/07/17 14:45 (Habitrol 21 Mg Patch.24 Hr) 1 patch DAILY T-DERMAL 05/07/17 17:03 Miscellaneous Information 1 DAILY T-DERMAL 05/08/17 17:03 (Lipitor) 40 mg HS PO 05/08/17 21:00 (Coreg) 3.125 mg Q12HR PO 05/08/17 21:00 Vital Signs / I&O Vital Signs Date Time Temp Pulse Resp B/P (MAP) Pulse Ox O2 Delivery O2 Flow Rate FiO2 05/08/17 15:43 98.6 77 18 129/78 (95) 98 05/08/17 12:00 98.0 76 18 124/79 (94) 97 05/08/17 08:00 97.6 70 18 124/75 (91) 98 05/08/17 07:00 70 05/08/17 06:11 66 05/08/17 06:00 65 05/08/17 05:00 67 05/08/17 04:10 98.6 60 20 97/70 (79) 97 05/08/17 04:10 63 05/08/17 04:00 66 05/08/17 03:00 64 05/08/17 02:00 65 05/08/17 01:00 65 05/08/17 00:00 98.7 64 20 101/68 (79) 97 05/08/17 00:00 68 05/08/17 00:00 63 05/07/17 23:00 66 05/07/17 22:00 63 05/07/17 21:00 76 05/07/17 20:00 77 05/07/17 20:00 63 05/07/17 20:00 98.6 63 20 106/67 (80) 97 05/07/17 19:00 68 I/O 05/07/17 05/07/17 05/07/17 05/08/17 05/08/17 05/08/17 07:00 15:00 23:00 07:00 15:00 23:00 Intake Total 1679 ml 240 ml Output Total 1325 ml 1000 ml Balance 354 ml -760 ml Intake Oral 480 ml 240 ml IV Total 1199 ml Output Urine Total 1325 ml 1000 ml # Bowel Movements 0 Laboratory GENERAL: SKIN: Warm and dry. HEAD: Normocephalic. EYES: No scleral icterus. No injection or drainage. NECK: Supple, trachea midline. No JVD or lymphadenopathy. CARDIOVASCULAR: Regular rate and rhythm without murmurs, gallops, or rubs. RESPIRATORY: Breath sounds equal bilaterally. No accessory muscle use. GASTROINTESTINAL: Abdomen soft, non-tender, nondistended. MUSCULOSKELETAL: No cyanosis, or edema. BACK: Nontender without obvious deformity. No CVA tenderness. Laboratory Tests Test 05/08/17 04:40 White Blood Count 7.8 TH/MM3 Red Blood Count 4.40 MIL/MM3 Hemoglobin 14.3 GM/DL Hematocrit 41.0 % Mean Corpuscular Volume 93.1 FL Mean Corpuscular Hemoglobin 32.5 PG Mean Corpuscular Hemoglobin Concent 34.9 % Red Cell Distribution Width 13.5 % Platelet Count 249 TH/MM3 Mean Platelet Volume 8.1 FL Neutrophils (%) (Auto) 68.0 % Lymphocytes (%) (Auto) 18.9 % Monocytes (%) (Auto) 9.6 % Eosinophils (%) (Auto) 3.0 % Basophils (%) (Auto) 0.5 % Neutrophils # (Auto) 5.3 TH/MM3 Lymphocytes # (Auto) 1.5 TH/MM3 Monocytes # (Auto) 0.7 TH/MM3 Eosinophils # (Auto) 0.2 TH/MM3 Basophils # (Auto) 0.0 TH/MM3 CBC Comment DIFF FINAL Differential Comment Blood Urea Nitrogen 15 MG/DL Creatinine 0.93 MG/DL Random Glucose 116 MG/DL Calcium Level 8.2 MG/DL Sodium Level 141 MEQ/L Potassium Level 4.1 MEQ/L Chloride Level 109 MEQ/L Carbon Dioxide Level 25.8 MEQ/L Anion Gap 6 MEQ/L Estimat Glomerular Filtration Rate 86 ML/MIN Total Creatine Kinase 407 U/L Creatine Kinase MB 22.7 NG/ML Creatine Kinase MB % 5.6 % Triglycerides Level 137 MG/DL Cholesterol Level 223 MG/DL LDL Cholesterol 156 MG/DL HDL Cholesterol 40.1 MG/DL Cholesterol/HDL Ratio 5.56 RATIO Assessment and Plan Problem List: (1) STEMI (ST elevation myocardial infarction) ICD Codes: I21.3 - ST elevation (STEMI) myocardial infarction of unspecified site Status: Acute Assessment and Plan 1.) Stemi - pod#1 primary pci bms prox rca, assymptomatic, continue aspirin, effient, coreg, altace, lipitor; probable dc in am Problem Qualifiers (1) STEMI (ST elevation myocardial infarction): Qualified Codes: I21.19 - ST elevation (STEMI) myocardial infarction involving other coronary artery of inferior wall French Chow MD May 08, 2017 17:33
--- NOTE | 2017-05-08 20:24 | EKG ---
Date Performed: 05/08/2017 Time Performed: 06:55:08 PTAGE: 52 years EKG: Sinus rhythm Left axis deviation Possible inferior infarct - age undetermined Since previous tracing, no signific ant change noted Abnormal ECG PREVIOUS TRACING ; 05/07/2017 07.02.22 DOCTOR: French Chow Interpretating Date/Time 05/08/2017 20:23:15
[2017-05-08] MEDS ORDERED: ATORVASTATIN 40 MG TAB PO SCH (21:00)
[2017-05-08] MEDS: BACLOFEN 20 MG TAB PO SCH (21:05)
[2017-05-08] MEDS: CARVEDILOL 3.125 MG TAB PO SCH (21:06)
[2017-05-09] VITALS (11 sets, daily range): BP systolic 102–112; BP diastolic 66–81; PULSE 70–95; RESP 16–18; TEMP 97.7; O2SAT 95–96
--- NOTE | 2017-05-09 08:23 | HHI.DCPOC ---
Discharge Care Plan Diagnosis: (1) STEMI (ST elevation myocardial infarction) Goals to Promote Your Health * To prevent worsening of your condition and complications * To maintain your health at the optimal level Directions to Meet Your Goals Take your medications as prescribed Follow your dietary instruction Follow activity as directed Keep your appointments as scheduled Take your immunizations and boosters as scheduled If your symptoms worsen call your PCP, if no PCP go to Urgent Care Center or Emergency Room Smoking is Dangerous to Your Health. Avoid second hand smoke Call the 24-hour hour crisis hotline for domestic abuse at Madeline Gutierrez MD May 09, 2017 08:23
[2017-05-09] MEDS: CARVEDILOL 3.125 MG TAB PO SCH (08:46)
[2017-05-09] MEDS: PRASUGREL 10 MG TAB PO SCH (08:46)
[2017-05-09] MEDS: RAMIPRIL 2.5 MG CAP PO SCH (08:47)
[2017-05-09] MEDS: ASPIRIN 81 MG CHEW TAB PO SCH (08:47)
[2017-05-09] MEDS: GABAPENTIN 400 MG CAP PO SCH (08:47)
[2017-05-09] MEDS: NICOTINE 21 MG/24 HR PATCH T-DERMAL SCH (09:00)
--- NOTE | 2017-05-09 12:15 | HHI.DS ---
Discharge Summary Admission Date May 07, 2017 at 07:24 Discharge Date: May 09, 2017 Admitting Diagnosis STEMI (1) STEMI (ST elevation myocardial infarction) ICD Code: I21.3 - ST elevation (STEMI) myocardial infarction of unspecified site Status: Acute Procedures Heart catheterization, status post bare-metal stent placement to the proximal RCA by cardiology. Brief History - From Admission 52-year-old male who presented to the emergency room with complaint of chest pain with associated diaphoresis. The patient was found to have STEMI and was emergently taken to the [facility] by cardiology. CBC/BMP: 05/08/17 0440 05/08/17 0440 Significant Findings Laboratory Tests Test 05/07/17 07:10 05/08/17 04:40 Red Blood Count 4.34 MIL/MM3 (4.50-5.90) 4.40 MIL/MM3 (4.50-5.90) Mean Corpuscular Hemoglobin 34.4 PG (27.0-34.0) Mean Corpuscular Hemoglobin Concent 37.1 % (32.0-36.0) Monocytes (%) (Auto) 10.8 % (0.0-8.0) 9.6 % (0.0-8.0) Activated Partial Thromboplast Time 21.0 SEC (24.3-30.1) Bedside Glucose 143 MG/DL (68-110) Calcium Level 8.2 MG/DL (8.5-10.1) 8.2 MG/DL (8.5-10.1) Troponin I 0.39 NG/ML (0.02-0.05) Random Glucose 116 MG/DL (74-106) Chloride Level 109 MEQ/L (98-107) Estimat Glomerular Filtration Rate 86 ML/MIN (>89) Total Creatine Kinase 407 U/L (39-308) Creatine Kinase MB 22.7 NG/ML (0.5-3.6) Creatine Kinase MB % 5.6 % (0.0-4.0) Cholesterol Level 223 MG/DL (120-200) LDL Cholesterol 156 MG/DL (0-99) Imaging Last Impressions Chest X-Ray 05/07/17 0711 Signed Impressions: Service Date/Time: April 07:11 - CONCLUSION: No acute cardiopulmonary abnormality is identified. Reece Salter MD PE at Discharge GENERAL: NAD SKIN: Warm and dry. HEAD: Normocephalic. EYES: No scleral icterus. No injection or drainage. NECK: Supple, trachea midline. No JVD or lymphadenopathy. CARDIOVASCULAR: Regular rate and rhythm without murmurs, gallops, or rubs. RESPIRATORY: Breath sounds equal bilaterally. No accessory muscle use. GASTROINTESTINAL: Abdomen soft, non-tender, nondistended. MUSCULOSKELETAL: No cyanosis, or edema. BACK: Nontender without obvious deformity. No CVA tenderness. Pt update on day of discharge Patient reports he is feeling great. Denies any chest pain or shortness of breath. Hospital Course 52-year-old male admitted with STEMI. STEMI culprit was the RCA which had a 60- 70% angiography complex, 70% stenosis at the bifurcation, there was a large PDA that had a mid 80% stenosis,Patient underwent heart catheterization and bare- metal stent placement to the proximal RCA. CTS was consulted, and states He can return back to his home state of [facility] to be evaluated by his cloth sponger and then cardiovascular surgery for surgery in approximately 4-6 weeks . He is discharged on Effient, aspirin, beta-abraham, Lipitor, and enalapril. He will follow up outpatient with cardiology next week. Pt Condition on Discharge: Good Discharge Disposition: Discharge Home Discharge Time: <= 30 minutes Discharge Instructions DIET: Follow Instructions for: Heart Healthy Diet Activities you can perform: Regular-No Restrictions Follow up Referrals: Cardiology Cardiology with French Chow MD PCP Follow-up - 1 Week New Medications: Aspirin (Tgt Aspirin) 81 Mg Chw 162 MG PO DAILY for Prevent Blood Clot, #30 EA Atorvastatin (Atorvastatin) 40 Mg Tab 40 MG PO HS for Cholesterol Management, #30 TAB Carvedilol (Coreg) 3.125 Mg Tab 3.125 MG PO Q12HR for Blood Pressure Management, #60 TAB Gabapentin (Neurontin) 400 Mg Cap 800 MG PO TID for Pain Management, #10 CAP Prasugrel (Effient) 10 Mg Tab 10 MG PO DAILY for Prevent Blood Clot, #30 TAB Ramipril (Ramipril) 2.5 Mg Cap 2.5 MG PO DAILY for Blood Pressure Management, #30 Madeline Mancilla MD May 09, 2017 12:15
--- NOTE | 2017-05-09 12:25 | PD.CARD.PN ---
Subjective Subjective Remarks denies chest pain Objective Vital Signs / I&O Vital Signs Date Time Temp Pulse Resp B/P (MAP) Pulse Ox O2 Delivery O2 Flow Rate FiO2 05/09/17 10:00 18 05/09/17 07:28 97.7 86 18 112/81 (91) 95 05/09/17 07:15 95 05/09/17 06:00 70 05/09/17 05:00 70 05/09/17 04:00 72 05/09/17 03:51 76 16 102/66 (78) 96 05/09/17 03:00 73 05/09/17 02:00 72 05/09/17 01:00 74 05/09/17 00:00 81 05/08/17 23:10 98 16 133/94 (107) 96 05/08/17 23:00 81 05/08/17 22:00 82 05/08/17 21:00 87 05/08/17 20:30 98.4 90 16 130/75 (93) 97 05/08/17 20:00 90 05/08/17 19:00 85 05/08/17 18:01 66 05/08/17 17:00 71 05/08/17 16:00 68 05/08/17 15:43 98.6 77 18 129/78 (95) 98 05/08/17 15:00 79 05/08/17 14:00 76 05/08/17 13:00 74 I/O 05/08/17 05/08/17 05/08/17 05/09/17 05/09/17 05/09/17 07:00 15:00 23:00 07:00 15:00 23:00 Intake Total 240 ml 740 ml 480 ml Output Total 1000 ml 200 ml Balance -760 ml 740 ml 280 ml Intake Oral 240 ml 740 ml 480 ml Output Urine Total 1000 ml 200 ml # Voids 3 2 # Bowel Movements 2 0 Physical Exam GENERAL: SKIN: Warm and dry. HEAD: Normocephalic. EYES: No scleral icterus. No injection or drainage. NECK: Supple, trachea midline. No JVD or lymphadenopathy. CARDIOVASCULAR: Regular rate and rhythm without murmurs, gallops, or rubs. RESPIRATORY: Breath sounds equal bilaterally. No accessory muscle use. GASTROINTESTINAL: Abdomen soft, non-tender, nondistended. MUSCULOSKELETAL: No cyanosis, or edema. BACK: Nontender without obvious deformity. No CVA tenderness. Assessment and Plan Problem List: (1) STEMI (ST elevation myocardial infarction) ICD Codes: I21.3 - ST elevation (STEMI) myocardial infarction of unspecified site Status: Acute Assessment and Plan 1.) Stemi - pod#2 primary pci bms prox rca, assymptomatic, continue aspirin, effient, coreg, altace, lipitor; f/u with me 05/11/17. d/w patient, his and nurse, i strongly emphasized compliance with aspirin and effient to patient and his Problem Qualifiers (1) STEMI (ST elevation myocardial infarction): Qualified Codes: I21.19 - ST elevation (STEMI) myocardial infarction involving other coronary artery of inferior wall French Chow MD May 09, 2017 12:25
== END 2017-05-09 11:15 | disposition home health service (06) | DRG 249 ==
LOC: NEPC 07:09 → HCIS 07:24
PROVIDERS: ADMIT Family Medicine; ATTEND Family Medicine
PROC: 02703DZ Dilation of Coronary Artery, One Artery with Intraluminal Device, Percutaneous Approach (ICD-10-PCS; principal; 2017-05-07)
PROC: 4A023N7 Measurement of Cardiac Sampling and Pressure, Left Heart, Percutaneous Approach (ICD-10-PCS; 2017-05-07)
PROC: B2111ZZ Fluoroscopy of Multiple Coronary Arteries using Low Osmolar Contrast (ICD-10-PCS; 2017-05-07)
PROC: B2151ZZ Fluoroscopy of Left Heart using Low Osmolar Contrast (ICD-10-PCS; 2017-05-07)
DX: I21.19 ST elevation (STEMI) myocardial infarction involving other coronary artery of inferior wall (principal); I95.9 Hypotension, unspecified; I25.119 Atherosclerotic heart disease of native coronary artery with unspecified angina pectoris; R00.1 Bradycardia, unspecified; R73.9 Hyperglycemia, unspecified
CPT/HCPCS: 71045; 80048; 80061; 80076; 82310; 82550; 82552; 83735; 83880; 84484; 85002; 85025; 85610; 85730; 92941; 93005; 93458; 96374; 99152; C1725; C1769; C1876; C1887; C1893; J0461; J1644; J2250; J3010; J3246; J7030; Q9967